=== PATIENT | male | born 1975 | race Caucasian/White ===

== ENCOUNTER 2017-12-30 23:55 | Emergency (ER) | payer OTHER ==
[~2017-12-30] VITALS: Ht 182.9 cm; Wt 69.9 kg
[2017-12-31 00:45] LABS: HEMOGLOBIN 12.6 G/DL (13.3-17.7); MEAN PLATELET VOLUME 9.2 FL (7.4-10.4); RED BLOOD COUNT 3.98 10^6/uL (4.35-5.85); RED CELL DISTRIBUTION WIDTH 13.1 % (10.0-14.5); WHITE BLOOD COUNT 6.6 10^3/uL (4.3-11.0)
[2017-12-31 01:05] LABS: ALANINE AMINOTRANSFERASE 23 U/L (0-55); ALKALINE PHOSPHATASE 56 U/L (40-136); BILIRUBIN,DIRECT 0.2 MG/DL (0.0-0.3); BILIRUBIN,INDIRECT 0.2 MG/DL; BILIRUBIN,TOTAL 0.4 MG/DL (0.1-1.0); BUN/CREATININE RATIO 35; CALCIUM 9.4 MG/DL (8.5-10.1); CARBON DIOXIDE 21 MMOL/L (21-32); CHLORIDE 108 MMOL/L (98-107); CREATININE SERUM 0.82 MG/DL (0.60-1.30); GFR ESTIMATED > 60; GLUCOSE 94 MG/DL (70-105); POTASSIUM 3.9 MMOL/L (3.6-5.0); SODIUM 142 MMOL/L (135-145); TOTAL PROTEIN 6.5 GM/DL (6.4-8.2)
[2017-12-31] MEDS ORDERED: KETOROLAC 30 MG/ML VIAL IVP ONE (02:45)
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
[2017-12-31] MEDS ORDERED: ACHD5005 PO (04:01)
[2017-12-31 04:15] VITALS: BP 118/83
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
== END 2017-12-31 04:15 | disposition home or self-care (01) ==
LOC: EDBD 12-31 00:01 → ER 12-31 00:01
DX: S70.02XA Contusion of left hip, initial encounter (principal); S70.311A Abrasion, right thigh, initial encounter; S50.312A Abrasion of left elbow, initial encounter; S20.412A Abrasion of left back wall of thorax, initial encounter; R40.2142 Coma scale, eyes open, spontaneous, at arrival to emergency department; R40.2252 Coma scale, best verbal response, oriented, at arrival to emergency department; R40.2362 Coma scale, best motor response, obeys commands, at arrival to emergency department; V19.40XA Pedal cycle driver injured in collision with unspecified motor vehicles in traffic accident, initial encounter
CPT/HCPCS: 36415; 70450; 71045; 72125; 72192; 80048; 80076; 80320; 85027; 93041; 96374